=== PATIENT | male | born 1995 | race Caucasian/White ===

== ENCOUNTER 2016-12-30 10:02 | Emergency (ER) | payer OTHER ==
[~2016-12-30] VITALS: Ht 177.8 cm; Wt 79.1 kg
[2016-12-30] MEDS ORDERED: SODIUM CHLORIDE 0.9% 1,000 ML IV ONE (10:19)
[2016-12-30] MEDS ORDERED: KETOROLAC 30 MG/1 ML IVPush ONE (10:30)
[2016-12-30] MEDS ORDERED: MORPHINE SULFATE 4 MG/ML, 1ML IVPush PRN (10:30)
[2016-12-30] MEDS ORDERED: ONDANSETRON 2MG/ML, 2ML IVPush ONE (10:30)
[2016-12-30] MEDS ORDERED: SODIUM CHLORIDE 0.9% 1,000ML IVBOLUS ONE (10:30)
[2016-12-30] MEDS ORDERED: KETOROLAC 30 MG/1 ML ONE (10:34)
[2016-12-30] MEDS ORDERED: MORPHINE SULFATE 4 MG/ML, 1ML ONE (10:34)
[2016-12-30] MEDS ORDERED: ONDANSETRON 2MG/ML, 2ML ONE (10:34)
[2016-12-30 11:18] LABS: BLOOD UREA NITROGEN 13 mg/dL (7-18)
[2016-12-30 11:43] VITALS: BP 138/76
== END 2016-12-30 13:11 | disposition home or self-care (01) ==
LOC: ED 11:22
DX: N13.2 Hydronephrosis with renal and ureteral calculous obstruction (principal)
CPT/HCPCS: 36415; 74176; 80048; 81001; 82040; 85025; 96361; 96374; 96375; 99285; J1885; J2405; J7030